=== PATIENT | male | born 1940 | race Caucasian/White ===

== ENCOUNTER 2016-07-08 05:34 | Day surgery (SDC) | payer OTHER ==
[~2016-07-08] VITALS: Ht 182.9 cm; Wt 107.5 kg
--- NOTE | ~2016-07-08 | O ---
[facility] [place] [address] OPERATIVE REPORT Name: SHERYL ZELAYA Room #: DEP [facility]..#: [id number] Admission: 07/08/16 Attend Phys: Trace Kaapdia MD Discharge: 07/08/16 Date of : 42 Report #: [id number] THIS REPORT FOR: //name// CC: Harvinder Kapadia PREOPERATIVE DIAGNOSES: 1. Lesion of the right face, anterior to the ear. This is irritating. 2. Lesion in the right posterior scalp at the hair line times 2. 3. Pigmented lesion, left areola. POSTOPERATIVE DIAGNOSES: 1. Lesion of the right face, anterior to the ear. This is irritating. 2. Lesion in the right posterior scalp at the hair line times 2. 3. Pigmented lesion, left areola. PROCEDURES PERFORMED: 1. Excision of right facial lesion in front of the ear. 2. Excision of right scalp lesion at hairline times 2. 3. Excision of left areolar pigmented lesion. ANESTHESIA: IV sedation, local 0.25% Marcaine. COMPLICATIONS: None. ESTIMATED BLOOD LOSS: Minimal. PROCEDURE NOTE: With the patient in supine position, his head was turned to the left, with the right side up. The lesion from the ear and the posterior scalp along the hairline were able to be prepped and draped in the same field. The lesion was anesthetized with a mixture of 1% Xylocaine with epinephrine and 0.25% Marcaine. Transverse elliptical incision was made in front of the ear, well over a centimeter. This was completely excised. The skin was brought together with 5-0 nylon. The posterior ear lesion was also excised. The two separate ellipses were made, and these are also over a centimeter. This defect was closed with 5-0 nylon in interrupted fashion. Antibiotic ointment, 4 x 4, and OpSite were used for dressing. Antibiotic ointment was placed over the ear lesion. The left chest was then prepped and draped in the sterile fashion. Pigmented lesion in the lateral aspect of the areola was excised. This was also about 1.5 cm. This was excised in elliptical manner. Skin was brought together with 5-0 nylon. There was also a keratotic lesion medially on the areola, and this was removed with cautery, and the lesion was shaved off and then base was [address] [address] OPERATIVE REPORT Name: SHERYL ZELAYA Room #: DEP [facility] Leoncio#: [id number] Admission: 07/08/16 Attend Phys: Trace Kapadia MD Discharge: 07/08/16 Date of : 42 Report #: [id number] cauterized. The patient tolerated the procedure well, was taken to recovery room. By: [id number] Trace Kapadia MD /nt
--- NOTE | ~2016-07-08 | S ---
[facility] [address] [place] [address] SURGICAL PATH RPT PROCEDURE Name: NIRAV ZELAYA Room #: DEP [facility].#: [id number] Admission: 07/08/16 Date of : 42 Discharge: 07/08/16 Report #: [id number] Path Case #: [id number] PATHOLOGY REPORT COLLECTION DATE: 07/08/2016 RECEIVED DATE: 07/08/2016 SUBMITTING PHYS: Dr. Trace Kapadia OTHER PHYS: Dr. Harvinder Cotton SPECIMEN(S) RECEIVED: A.Right facial lesion-in front R ear B.Right post auricular superior lesion C.Right post auricular inferior lesion D.Left areolar lesion * * * * * * * * * * * * FINAL DIAGNOSIS: A. Skin, right facial lesion in front right ear: - Seborrheic keratosis with actinic changes and solar elastosis focally extending to the margins. - There is no evidence of atypia or malignancy. B. Skin, right postauricular superior lesion: - Mild superficial perivascular dermatitis with overlying mild epidermal proliferation. (See comment) - There is no evidence of atypia or malignancy. C. Skin, right postauricular inferior lesion: - Mild superficial perivascular dermatitis with mild squamous epithelial hyperplasia. (See comment) - There is no evidence of atypia or malignancy. D. Skin, left areolar lesion, biopsy: - Hyperkeratotic seborrheic keratosis extending to the margins. - There is no evidence of atypia or malignancy. COMMENT: Part B: The biopsy reveals mild superficial perivascular dermatitis with overlying epidermal proliferation. There is no evidence of atypia or malignancy. The differential includes allergic contact dermatitis, dyshidrotic dermatitis and nummular dermatitis. No obvious basal cell carcinoma or squamous cell carcinoma noted. This case will also be reviewed by Dr. Nora eRndon. (SHA:csd; d/t: 07/09/2016) PATHOLOGIST: Khang Herrera M.D. REPORT ELECTRONICALLY SIGNED BY: Khang Herrera M.D. DATE/TIME: 07/09/2016 21:21 * * * * * * * * * * * * [address] [address] SURGICAL PATH RPT PROCEDURE Name: NIRAV ZELAYA Room #: [facility].#: [id number] Admission: 07/08/16 Date of : 42 Discharge: 07/08/16 Report #: [id number] Path Case #: [id number] GROSS PATHOLOGY: A. Received in formalin labeled "Nirav Zelaya, right facial lesion in front of right ear," is a 2.4 x 0.9 x 0.7 cm ellipse of skin displaying a well-circumscribed, slightly raised and light ulrich lesion which measures 0.6 x 0.5 cm. The margins are inked black. The specimen is sectioned into seven pieces and entirely submitted in cassettes A1 and A2, with the tips placed in cassette A2. B. Received in formalin labeled "Nirav Zelaya, right postauricular superior lesion," is a 2.4 x 0.7 x 0.6 cm ellipse of skin displaying a poorly circumscribed, flat and light ulrich lesion which measures 0.7 x 0.4 cm. The margins are inked black. The specimen is sectioned into nine pieces and entirely submitted in cassettes B1 and B2, with the bisected tips placed in cassette B2. C. Received in formalin labeled "Nirav Zelaya, right postauricular inferior lesion," is a 2.1 x 0.8 x 0.7 cm ellipse of skin displaying a pale ulrich and grossly unremarkable epidermal surface. The margins are inked black. The specimen is sectioned into six pieces and entirely submitted in cassettes C1 and C2, with the tips placed in cassette C2. D. Received in formalin labeled "Nirav Zelaya, left areolar lesion," is a 2.7 x 0.8 x 0.6 cm ellipse of skin displaying a poorly circumscribed, irregular in contour, flaky and light ulrich lesion which measures 1.9 x 0.7 cm. The margins are inked black. The specimen is sectioned into nine pieces and entirely submitted in cassettes D1 through D3, with the tips placed in cassette D3. (CAA; 07/08/2016) CLINICAL HISTORY: Multiple lesions INITIAL CPT CODE(S): A; 58994 B; 05079 C; 09413 D; 35494 Professional services performed by [facility] at [address], [place] [address] Technical services performed by [facility] at [address] [place] [address], [address], [place] [address]. [facility] [address] [address] SURGICAL PATH RPT PROCEDURE Name: NIRAV ZELAYA Room #: [facility] Leoncio#: [id number] Admission: 07/08/16 Date of : [birth year] Discharge: 07/08/16 Report #: [id number] Path Case #: [id number] [place] [address] PHONE: [phone] DIRECTOR: Cory Lee M.D. * * * END OF REPORT * * *
--- NOTE | ~2016-07-08 | H ---
[facility] [place] [address] HISTORY AND PHYSICAL Name: SHERYL ZELAYA Room #: 150-6 [facility]#: [id number] Admission: 07/08/16 Attend Phys: Trace Kapadia MD Discharge: Date of : 42 Report #: [id number] THIS REPORT FOR: //name// CC: Harvinder Kapadia PREOPERATIVE DIAGNOSES: Right scalp lesion times 2, right facial lesion and right areolar lesion. HISTORY OF PRESENT ILLNESS: The patient is a 76-year-old who has had facial lesion that is sore and he is here to have this removed. Also, has 2 lumps in the back of his head that come and go and it gets big and causes him to have headaches. The patient has a lesion on his nose that has been bleeding and has a pigmented lesion on the nipple area on the left side. The patient is here to have these excised. PAST MEDICAL HISTORY: Prostate cancer, diverticular disease and high cholesterol. Denies heart disease, diabetes and high blood pressure. Denies liver disease or kidney disease. Denies bleeding disorder. PAST SURGICAL HISTORY: Prostatectomy. Right gynecomastia, knee surgery and appendectomy. Eyelash surgery. MEDICATIONS: Lipitor, Advil and fish oil. ALLERGIES: Not allergic to anything. FAMILY HISTORY: There is cancer that runs in the family. SOCIAL HISTORY: The patient is a retired plant mechanic. He does not smoke or drink. REVIEW OF SYSTEMS: No chest pain, shortness of breath or palpitation. PHYSICAL EXAMINATION: GENERAL: The patient is well-nourished male, in no acute distress. HEENT: Pupils reactive to light. Extraocular muscles are intact. He has a lesion on the right side of his face that is pigmented and raised. He has 2 scalp lesions. NECK: Soft and supple. No masses. CHEST: There is a keratotic-looking lesion on the nipple on the left. The patient was recommended to have these excised. Due to the multiple nature, [address] [place] [address] HISTORY AND PHYSICAL Name: SHERYL ZELAYA Room #: 150-6 [facility]#: [id number] Admission: 07/08/16 Attend Phys: Trace Kapadia MD Discharge: Date of : 42 Report #: [id number] the patient is brought to the OR for a procedure with IV sedation. The patient wants to proceed. By: [id number] Trace Kapadia MD /nt
[~2016-07-08 05:34] MED LIST: ASPIR 8181 MG PO; ATORVASTATIN CA40 MG PO; BENADRYL25 MG PO; CIPRO500 MG PO; FISH OIL 1,001000 M2 PO; FLAGYL500 MG PO; IBUPROFEN 200200 M1 PO; MEN 50 PLUS MU1 EACH PO; PROBIOTIC1 EAC1 PO; TUMS PO
[2016-07-08 10:01] LABS: HEMATOCRIT 41.8 % (42.0-52.0); HEMOGLOBIN 14.2 gm/dL (14.0-18.0)
[2016-07-08 10:37] VITALS: BP 136/81
[2016-07-08 11:50] VITALS: BP 136/81
== END 2016-07-08 12:45 | disposition home or self-care (01) ==
LOC: OR 05:34 → TBA 05:34 → OR 11:26
PROVIDERS: Surgery
DX: L57.0 Actinic keratosis (principal); L82.1 Other seborrheic keratosis; L30.8 Other specified dermatitis; L85.9 Epidermal thickening, unspecified; E78.00 Pure hypercholesterolemia, unspecified; K21.9 Gastro-esophageal reflux disease without esophagitis; Z87.891 Personal history of nicotine dependence; Z90.79 Acquired absence of other genital organ(s); Z85.46 Personal history of malignant neoplasm of prostate; Z90.49 Acquired absence of other specified parts of digestive tract
CPT/HCPCS: 50010; 50101; 50386; 50403; 56526; 62110; 62850; 70005

== ENCOUNTER 2016-12-09 07:15 | Day surgery (SDC) | payer OTHER ==
[~2016-12-09] VITALS: Ht 182.9 cm; Wt 107.5 kg
--- NOTE | ~2016-12-09 | O ---
[facility] [place] [address] OPERATIVE REPORT Name: SHERYL ZELAYA Room #: 150-8 [facility]#: [id number] Admission: 12/09/16 Attend Phys: Trace Kapadia MD Discharge: Date of : 42 Report #: [id number] THIS REPORT FOR: //name// CC: Harvinder Kapadia DATE OF SERVICE: 12/09/2016 PREOPERATIVE DIAGNOSIS: Painful left breast mass. POSTOPERATIVE DIAGNOSES: Painful left breast mass, skin lesion on the left chest. PROCEDURE PERFORMED: 1. Excision of left breast mass/gynecomastia. 2. Excision of skin lesion. ANESTHESIA: General. SURGEON: Trace Kapadia MD BLOOD LOSS: 20 mL. COMPLICATIONS: None. INDICATIONS: The patient is a 76-year-old who has a breast lump. This became quite painful a couple of weeks ago. Also, it is fairly thick and prominent. The patient does have a family history of breast cancer in sister and 2 cousins. He is recommended to have this removed to treat the pain. PROCEDURE NOTE: With the patient under general anesthesia, the left breast is prepped and draped in a sterile fashion. A curvilinear incision was made at 4 o'clock to 6 o'clock position. There is a small skin lesion that was also present. PROCEDURE NOTE: With the patient under general anesthesia, timeout was performed. The left breast was prepped and draped in a sterile fashion. IV antibiotic was administered. A 0.25% Marcaine was used to anesthetize the skin. A skin incision was made from the 4 to about 6 o'clock position. At the edge of the breast tissue, there is a skin lesion ____ in this area and I went ahead and removed it and sent it for pathology. Possibility of a basal cell. The skin incision was then carried down through subcutaneous tissue. The dissection was then carried out at the level of the subcutaneous tissue at the superficial fascial layer. This was carried to the nipple where the firm breast tissue was identified in the lateral position underneath the subareolar area. The breast tissue is pretty sick without a definite mass. There is very little left under [address] [address] OPERATIVE REPORT Name: SHERYL ZELAYA Room #: 150-8 [facility].#: [id number] Admission: 12/09/16 Attend Phys: Trace Kapadia MD Discharge: Date of : 42 Report #: [id number] the nipple and areolar complex in terms of breast tissue. The dissection was then carried all around the breast. Essentially, a subcutaneous mastectomy was performed from this incision. This incision was then carried down posteriorly and then the breast was taken off close to the chest wall. This included all the breast tissue. Specimen sent to pathology. Further dissection was carried along the periphery to even this incision out. A #15 Oscar drain was brought in through a small stab incision inferior laterally. This was sutured with 3-0 silk suture. The area was irrigated. Hemostasis obtained. The subcutaneous tissue was reapproximated with 4-0 PDS. The skin was then closed with 5-0 PDS running subcuticular fashion. Skin glue was applied. 4 x 4, Op-Site was used for dressing. The patient was taken to recovery room. By: [id number] Trace Kapadia MD /nt
--- NOTE | ~2016-12-09 | S ---
[facility] [place] [address] SURGICAL PATH RPT PROCEDURE Name: NIRAV ZELAYA Room #: DEP [facility]..#: [id number] Admission: 12/09/16 Date of : 42 Discharge: 12/09/16 Report #: [id number] Path Case #: [id number] PATHOLOGY REPORT COLLECTION DATE: 12/09/2016 RECEIVED DATE: 12/09/2016 SUBMITTING PHYS: Dr. Trace Kapadia OTHER PHYS: Dr. Harvinder Cotton SPECIMEN(S) RECEIVED: A.Skin lesion left chest B.Breast biopsy * * * * * * * * * * * * FINAL DIAGNOSIS: A. Skin lesion, left breast, excision: - Squamoproliferative lesion with features suggestive of irritated seborrheic keratosis. B. Breast mass, left, lumpectomy: - Gynecomastia. - Mild chronic inflammation, focal. (Please see comment) COMMENT: Part "B" of this case has also been reviewed by Dr. Khang Herrera who agrees with the diagnosis. (SKM:janina; 12/11/2016) PATHOLOGIST: Pan Beach M.D. REPORT ELECTRONICALLY SIGNED BY: Pan Beach M.D. DATE/TIME: 12/12/2016 12:24 * * * * * * * * * * * * GROSS PATHOLOGY: A. The specimen is received in formalin, labeled "Nirav Zelaya and skin lesion left breast", is an unoriented ellipse of skin 3.5 x 0.5 x 0.3 cm. There is an eccentric eccentrically located 0.3 x 0.2 cm papule that is 0.1 cm from the closest skin periphery. Inked black, the resection and entirely submitted sequentially from the tip closest to the lesion in A1-A2 (A1 contains lesion) B. The specimen is received in formalin, labeled "Nirav Zelaya and left breast mass", is a 78 g, unoriented portion of fibro-adipose tissue measuring 7.3 x 7.0 x 2.0 cm. One surface shows lobulated adipose tissue and at the opposite partially covered by gilliland-white membrane. Entirely inked black and serially sectioned to show a [facility] [place] [address] SURGICAL PATH RPT PROCEDURE Name: NIRAV ZELAYA [facility]#: [id number] Admission: 12/09/16 Date of : 42 Discharge: 12/09/16 Report #: [id number] Path Case #: [id number] gilliland-white fibrous area corresponding to gilliland-white membrane. The remaining parenchyma glistening lobulated. [employer] Crop Supervisor sections submitted in B1-B6 (SWS; 12/09/2016) CLINICAL HISTORY: Left breast mass INITIAL CPT CODE(S): A; 82628 B; 78058 Professional services performed by [facility] at [facility] [address] [place] [address] Technical services performed by [facility] at [address] [place] [address]., [address], [place] [address]. [facility] [address] [place] [address] PHONE: [phone] DIRECTOR: Cory Lee M.D. * * * END OF REPORT * * *
[~2016-12-09 07:15] MED LIST changes: +FISH OIL PO; +PRILOSEC OTC20 MG PO
[2016-12-09 11:20] VITALS: BP 127/82
[2016-12-09] MEDS ORDERED: NORCO 5-325 TA1 EACH PO (14:51)
[2016-12-09 15:10] VITALS: BP 127/82
== END 2016-12-09 15:50 | disposition home or self-care (01) ==
LOC: OR 07:15 → TBA 07:15 → OR 14:46
DX: N62 Hypertrophy of breast (principal)
CPT/HCPCS: 50010; 50101; 50386; 50417; 54118; 56525; 56526; 62110; 62900; 70005

== ENCOUNTER → 2019-04-19 | Outpatient (CLI) | payer OTHER ==
[~2019-04-19] MED LIST changes: +NORCO 5-325 TA1 EACH PO
[2019-04-19 10:31] LABS: CREATININE 1.2 mg/dL (0.7-1.3)
== END ==
LOC: CAT 09:42
PROVIDERS: Surgery
DX: K57.30 Diverticulosis of large intestine without perforation or abscess without bleeding (principal); N20.0 Calculus of kidney; M47.815 Spondylosis without myelopathy or radiculopathy, thoracolumbar region; M53.85 Other specified dorsopathies, thoracolumbar region; Z90.49 Acquired absence of other specified parts of digestive tract; Z85.46 Personal history of malignant neoplasm of prostate